=== PATIENT | female | born 1985 | race Caucasian/White ===

== ENCOUNTER 2017-02-04 13:25 | Emergency (ER) | payer OTHER ==
--- NOTE | ~2017-02-04 | US134 ---
[facility]. [facility] A Service of [facility] / [facility] RADIOLOGY TEXT RESULTS PATIENT: COLETTE HERRERA LOCATION: SED : 89 UNIT #: [id number] AGE: [address]: Gemma Victor SEX: F ORDER DR: [id number] [address] [id number] [id number] MR#: [id number] Acc #: [id number] NAME: COLETTE HERRERA : 1985 SEX: F STUDY DATE/TIME: 02/04/2017 14:25 UNIT: SED ROOM: STUDY DESCRIPTION: US Transvaginal Attending Physician: Gemma Victor Pa-C Ordering Physician: Physician Non-Staff Primary Care Physician: No Primary Care Physician MEDICAL IMAGING REPORT This report is preliminary unless electronic signature is present. EXAM Transvaginal pelvic ultrasound. 02/04/2017 HISTORY Pelvic cramping for 7-10 days intermittently with irregular bleeding for 1 month. . Negative beta HCG today. Last menstrual period 02/02/2017. Intrauterine device placement 5 years ago. COMPARISON None. FINDINGS The uterus measures 7.6 x 3.2 x 4.1 cm. No focal myometrial abnormality is identified. Intrauterine device appears positioned within the endometrial canal. Accurate measurements of the endometrial bilayer difficult to assess due to obscuration by aforementioned IUD. Endometrial bilayer on the long axis which measures about 10 mm thickness which is within normal limits. Right ovary measures 3.6 x 3.3 x 1.8 cm, and demonstrates normal color and spectral Doppler flow. Left ovary cannot be satisfactorily visualized. No pelvic free fluid is identified. IMPRESSION 1. Intrauterine device is in place. It obscures the endometrial bilayer, but to extend that can be seen, endometrial bilayer thickness is within normal limits. 2. Normal right ovary with normal flow. 3. The left ovary cannot be visualized. 4. No pelvic free fluid. [facility] A Service of [facility] / [facility] RADIOLOGY TEXT RESULTS PATIENT: COLETTE HERRERA LOCATION: SED : [birth year] UNIT #: [id number] AGE: [address]: Gemma Victor SEX: F ORDER DR: Dictated by... Mahogany Noel M.D. THIS IS AN ELECTRONICALLY VERIFIED REPORT Mahogany Noel M.D. at 02/06/2017 9:34 PM Marce TD: 02/04/2017 17:02 JOB #: [id number] MEDICAL IMAGING REPORT Page 1 of 1
[2017-02-04] MEDS ORDERED: KLONOPIN PO (13:30)
[2017-02-04] MEDS ORDERED: ADDERALL PO (13:30)
[2017-02-04] MEDS ORDERED: RISPERDAL PO (13:30)
[2017-02-04 13:56] LABS: URINE SOURCE CLEAN CATCH
[2017-02-04 14:08] LABS: URINE APPEARANCE CLEAR; URINE BILIRUBIN NEG (NEG); URINE BLOOD 3+ (NEG); URINE COLOR YELLOW; URINE GLUCOSE NEG (NORM); URINE KETONE NEG (NEG); URINE LEUKOCYTE ESTERASE NEG (NEG); URINE NITRATE NEG (NEG); URINE PROTEIN NEG (NEG); URINE SPECIFIC GRAVITY 1.015 (1.003-1.035); URINE UROBILINOGEN 0.2 MG/DL (NORM)
[2017-02-04 14:12] LABS: MICRO INDICATED? YES
[2017-02-04 14:39] LABS: URINE RBC 0-2 /[HPF] (0-2); URINE WBC 0-2 /[HPF] (0-5)
[2017-02-04 14:40] LABS: URINE BACTERIA NEG (NEG); URINE SQUAMOUS EPITHELIAL CELL FEW /[HPF]; URINE TRANSITIONAL EPI CELLS OCCAS /[HPF]
[2017-02-06 08:40] LABS: CHLAMYDIA TRACH Not Detected (Not Detected); N GONOR Not Detected (Not Detected)
== END 2017-02-04 17:45 | disposition home or self-care (01) ==
LOC: SED 13:25
PROVIDERS: Physician Assistant
DX: N93.8 Other specified abnormal uterine and vaginal bleeding (principal); F17.200 Nicotine dependence, unspecified, uncomplicated
CPT/HCPCS: 76830; 81003; 84703; 87210; 87491; 87591; 87808; 87905; 99284

== ENCOUNTER 2017-03-17 10:46 | Emergency (ER) | payer OTHER ==
[~2017-03-17 10:46] MED LIST: ADDERALL PO; KLONOPIN PO; RISPERDAL PO
[2017-03-17] MEDS ORDERED: AZO1 EACH (10:51)
[2017-03-17 11:23] LABS: URINE SOURCE CLEAN CATCH
[2017-03-17 11:28] LABS: URINE APPEARANCE CLOUDY; URINE BLOOD 1+ (NEG); URINE COLOR YELLOW; URINE KETONE TRACE (NEG); URINE LEUKOCYTE ESTERASE 3+ (NEG); URINE NITRATE POS (NEG); URINE PH 7.5 (5-8); URINE PROTEIN 2+ (NEG); URINE SPECIFIC GRAVITY 1.025 (1.003-1.035)
[2017-03-17 11:29] LABS: URINE GLUCOSE 50 MG/DL (NORM)
[2017-03-17 11:38] LABS: MICRO INDICATED? YES; URINE BILIRUBIN NEG (NEG)
[2017-03-17 11:49] LABS: CULTURE INDICATED? YES; URINE BACTERIA 1+ (NEG); URINE RBC 0-2 /[HPF] (0-2); URINE SQUAMOUS EPITHELIAL CELL FEW /[HPF]; URINE WBC 100-200 /[HPF] (0-5)
[2017-03-18 22:28] LABS: CHLAMYDIA TRACH Not Detected (Not Detected); N GONOR Not Detected (Not Detected)
== END 2017-03-17 13:36 | disposition home or self-care (01) ==
LOC: SED 10:46
PROVIDERS: Nurse Practitioner
DX: N39.0 Urinary tract infection, site not specified (principal); N76.0 Acute vaginitis; M79.5 Residual foreign body in soft tissue; F17.210 Nicotine dependence, cigarettes, uncomplicated; F31.9 Bipolar disorder, unspecified
CPT/HCPCS: 81003; 84703; 87086; 87210; 87491; 87591; 87808; 87905; 99284